=== PATIENT | female | born 1950 | race African-American/Black ===

== ENCOUNTER 2018-06-03 14:41 | Inpatient (IN) | payer MEDICARE, OTHER ==
[2018-06-03] MEDS: ONDANSETRON 4 MG INJ IV (20:19)
[2018-06-03] MEDS: morphine 4 MG/ML VIAL IV (20:19)
[2018-06-03] MEDS: SOD CHLORIDE 0.9% 1,000 ML IV (20:20)
[2018-06-03 20:34] LABS: ADD MAN DIFF? NO
[2018-06-03 20:41] LABS: BASOPHILS % 0.2 % (0.0-2.0)
[2018-06-03 20:46] LABS: EOSINOPHILS % 0.4 % (0.0-7.0); HEMATOCRIT 43.5 % (37.0-47.0); HEMOGLOBIN 14.8 g/dl (12.0-16.0); LYMPHOCYTES # 1.4 10^3/ul (0.8-2.9); LYMPHOCYTES % 24.6 % (15.0-51.0); MEAN CORPUSCULAR HEMOGLOBIN 30.4 pg (29.0-33.0); MEAN CORPUSCULAR VOLUME 89.3 fl (82.0-101.0); MONOCYTE # 0.7 10^3/ul (0.3-0.9); MONOCYTES % 11.5 % (0.0-11.0); NEUTROPHIL # 3.6 10^3/ul (1.6-7.5); NEUTROPHILS % 62.9 % (39.0-77.0); PLATELET COUNT 287 10^3/UL (140-415); RED BLOOD COUNT 4.87 10^6/ul (4.20-5.40); RED CELL DISTRIBUTION WIDTH 13.5 % (11.5-14.5)
[2018-06-03 20:46] LABS: WHITE BLOOD COUNT 5.7 10^3/ul (4.8-10.8)
[2018-06-03] MEDS: LORAZEPAM 2 MG INJ IV ×2 (20:50→23:56)
[2018-06-03 20:51] LABS: POSITIVE DIFF @See below
[2018-06-03] MEDS: LIDOCAINE 2% VISC 15 ML CUP PO (20:52)
[2018-06-03 20:58] LABS: ALANINE AMINOTRANSFERASE 22 IU/L (13-69); ALBUMIN 3.9 g/dl (3.3-4.9); ALBUMIN/GLOBULIN RATIO 1.11; ALKALINE PHOSPHATASE 94 IU/L (42-121); ANION GAP 8 (5-13); ASPARTATE AMINO TRANSFERASE 11 IU/L (15-46); BILIRUBIN,INDIRECT 0.3 mg/dl (0-1.1); BILIRUBIN,TOTAL 0.3 mg/dl (0.2-1.3); BLOOD UREA NITROGEN 12 mg/dl (7-20); CALCIUM 9.5 mg/dl (8.4-10.2); CARBON DIOXIDE 28 mmol/L (21-31); CHLORIDE 98 mmol/L (97-110); CREATININE 0.64 mg/dl (0.44-1.00); Estimated GFR > 60 mL/min (>60); GLUCOSE 279 mg/dl (70-220); LIPASE 25 U/L (23-300); POTASSIUM 4.1 mmol/L (3.5-5.1); SODIUM 134 mmol/L (135-144); TOTAL PROTEIN 7.4 g/dl (6.1-8.1)
[2018-06-03 21:32] LABS: BAND NEUTROPHILS #M 0.2 10^3/ul (0.0-0.6); BAND NEUTROPHILS % (M) 5 % (0-4); LYMPHOCYTES #M 1.6 10^3/ul (0.8-2.9); LYMPHOCYTES % (M) 29 % (15-51); MONOCYTE #M 0.2 10^3/ul (0.3-0.9); MONOCYTES % (M) 5 % (0-11); PLATELET ESTIMATE NORMAL; REACTIVE LYMPHOCYTES% (M) 1 % (0-0); SEG NEUT #M 3.4 10^3/ul (1.6-7.5); SEGMENTED NEUTROPHILS (M) % 60 % (39-77); SMUDGE%M 1 % (0-0)
[2018-06-03 21:36] LABS: PROTIME 13.3 Sec (11.9-14.9)
[2018-06-03 21:37] LABS: PARTIAL THROMBOPLASTIN TIME 24.3 Sec (23.0-35.0)
[2018-06-03] MEDS ORDERED: ONDANSETRON 4 MG INJ IV (22:00)
[2018-06-03] MEDS ORDERED: ACETAMINOPHEN 325 MG TAB PO (22:00)
[2018-06-03 22:17] LABS: ADD UMIC YES; UR ASCORBIC ACID NEGATIVE (NEGATIVE); UR BACTERIA FEW /HPF (NONE SEEN); UR BILIRUBIN (Dip) NEGATIVE (NEGATIVE); UR BLOOD (Dip) NEGATIVE (NEGATIVE); UR CLARITY SLIGHTLY CLOUDY (CLEAR); UR COLOR YELLOW (YELLOW); UR GLUCOSE (Dip) 3+ mg/dL (NEGATIVE); UR KETONES (Dip) 1+ mg/dL (NEGATIVE); UR LEUKOCYTE ESTERASE (Dip) NEGATIVE Leu/ul (NEGATIVE); UR MUCUS MANY /HPF (NONE SEEN); UR NITRITE (Dip) NEGATIVE (NEGATIVE); UR RBC 1 /HPF (0-5); UR SPECIFIC GRAVITY (Dip) 1.043 (1.003-1.030); UR SQUAMOUS EPITHELIAL CELL MODERATE /HPF (FEW); UR TOTAL PROTEIN (Dip) 1+ mg/dl (NEGATIVE); UR UROBILINOGEN (Dip) NEGATIVE (NEGATIVE); UR WBC 0 /HPF (0-5)
[2018-06-03] MEDS: NS + KCL 20 MEQ 1,000 ML IV (23:57)
[2018-06-04] MEDS ORDERED: hydrALAzine 20 MG INJ IV ×2 (00:30)
[2018-06-04] MEDS ORDERED: DEXTROSE 50% 50 ML SYRINGE IV ×2 (01:00)
[2018-06-04] MEDS ORDERED: GLUCOSE GEL 15 GRAM TUBE BUCCAL (01:00)
[2018-06-04] MEDS ORDERED: GLUCOSE GEL 15 GRAM TUBE PO ×2 (01:00)
[2018-06-04] MEDS ORDERED: GLUCAGON 1 MG INJ IM (01:00)
[2018-06-04] MEDS: INSULIN ASPART [NOVOLOG] 3 ML PEN SC ×6 (01:00→20:45)
[2018-06-04] MEDS: ACCU-CHEK XX (02:00)
[2018-06-04] MEDS: morphine 2 MG INJ IV ×4 (02:19→21:41)
[2018-06-04 05:41] LABS: ADD MAN DIFF? NO
[2018-06-04 05:49] LABS: BASOPHILS % 0.2 % (0.0-2.0); EOSINOPHILS # 0.1 10^3/ul (0.0-0.5); EOSINOPHILS % 0.8 % (0.0-7.0); HEMATOCRIT 39.4 % (37.0-47.0); HEMOGLOBIN 13.2 g/dl (12.0-16.0); LYMPHOCYTES # 1.4 10^3/ul (0.8-2.9); LYMPHOCYTES % 21.8 % (15.0-51.0); MEAN CORPUSCULAR HEMOGLOBIN 30.6 pg (29.0-33.0); MEAN CORPUSCULAR HGB CONC 33.5 g/dl (32.0-37.0); MEAN CORPUSCULAR VOLUME 91.4 fl (82.0-101.0); MEAN PLATELET VOLUME 10.3 fl (7.4-10.4); MONOCYTE # 0.7 10^3/ul (0.3-0.9); MONOCYTES % 11.9 % (0.0-11.0); NEUTROPHIL # 4.1 10^3/ul (1.6-7.5); PLATELET COUNT 327 10^3/UL (140-415); RED BLOOD COUNT 4.31 10^6/ul (4.20-5.40); RED CELL DISTRIBUTION WIDTH 13.7 % (11.5-14.5)
[2018-06-04 05:49] LABS: WHITE BLOOD COUNT 6.2 10^3/ul (4.8-10.8)
[2018-06-04 06:19] LABS: ALANINE AMINOTRANSFERASE 20 IU/L (13-69); ALBUMIN 3.5 g/dl (3.3-4.9); ALBUMIN/GLOBULIN RATIO 1.12; ALKALINE PHOSPHATASE 76 IU/L (42-121); ANION GAP 8 (5-13); ASPARTATE AMINO TRANSFERASE 10 IU/L (15-46); BILIRUBIN,INDIRECT 0.3 mg/dl (0-1.1); BILIRUBIN,TOTAL 0.3 mg/dl (0.2-1.3); BLOOD UREA NITROGEN 9 mg/dl (7-20); CALCIUM 8.4 mg/dl (8.4-10.2); CARBON DIOXIDE 26 mmol/L (21-31); CHLORIDE 107 mmol/L (97-110); CREATININE 0.55 mg/dl (0.44-1.00); Estimated GFR > 60 mL/min (>60); GLUCOSE 199 mg/dl (70-220); POTASSIUM 3.9 mmol/L (3.5-5.1); SODIUM 141 mmol/L (135-144); TOTAL PROTEIN 6.6 g/dl (6.1-8.1)
[2018-06-04 08:50] LABS: HEMOGLOBIN A1C 8.1 % (0-5.9)
[2018-06-04] MEDS: IOHEXOL 300MG/ML 150 ML BTL PO (09:31)
[2018-06-04] MEDS: ONDANSETRON 4 MG INJ IV (09:45)
[2018-06-04] MEDS: NS + KCL 20 MEQ 1,000 ML IV ×3 (09:49→20:51)
[2018-06-04] MEDS: CEPASTAT LOZENGE MT ×2 (16:22→22:52)
[2018-06-04] MEDS: LORAZEPAM 2 MG INJ IV (23:02)
[2018-06-05] MEDS: INSULIN ASPART [NOVOLOG] 3 ML PEN SC ×6 (01:00→20:24)
[2018-06-05] MEDS: morphine 2 MG INJ IV ×3 (01:45→21:20)
[2018-06-05] MEDS: ACCU-CHEK XX ×3 (02:00→21:00)
[2018-06-05] MEDS: NS + KCL 20 MEQ 1,000 ML IV ×2 (07:17→17:50)
[2018-06-05] MEDS: CEPASTAT LOZENGE MT ×3 (09:26→20:23)
[2018-06-05] MEDS: ONDANSETRON 4 MG INJ IV (13:39)
[2018-06-05] MEDS: metFORMIN 500 MG TAB PO (17:53)
[2018-06-05] MEDS: ENOXAPARIN 100 MG/ML SYG SC (17:55)
[2018-06-05] MEDS: DILTIAZEM (CD) 180 MG CAP PO (20:23)
[2018-06-05] MEDS: ATORVASTATIN 20 MG TAB PO (20:23)
[2018-06-05] MEDS: GABAPENTIN 300 MG CAP PO (20:23)
[2018-06-05] MEDS: LORAZEPAM 2 MG INJ IV (23:09)
[2018-06-06] MEDS: ACCU-CHEK XX ×5 (02:00→20:34)
[2018-06-06] MEDS: NS + KCL 20 MEQ 1,000 ML IV ×3 (02:33→22:35)
[2018-06-06] MEDS: morphine 2 MG INJ IV ×3 (02:37→22:31)
[2018-06-06] MEDS: INSULIN ASPART [NOVOLOG] 3 ML PEN SC ×4 (07:50→20:34)
[2018-06-06] MEDS: metFORMIN 500 MG TAB PO ×2 (08:54→17:43)
[2018-06-06] MEDS: LISINOPRIL 20 MG TAB PO (08:54)
[2018-06-06] MEDS: DILTIAZEM (CD) 180 MG CAP PO ×2 (08:54→20:33)
[2018-06-06] MEDS: GABAPENTIN 300 MG CAP PO ×3 (08:54→20:33)
[2018-06-06 10:15] LABS: ADD MAN DIFF? NO
[2018-06-06 10:16] LABS: BASOPHILS % 0.2 % (0.0-2.0); EOSINOPHILS # 0.1 10^3/ul (0.0-0.5); HEMATOCRIT 38.8 % (37.0-47.0); HEMOGLOBIN 12.9 g/dl (12.0-16.0); LYMPHOCYTES # 1.1 10^3/ul (0.8-2.9); LYMPHOCYTES % 22.6 % (15.0-51.0); MEAN CORPUSCULAR HEMOGLOBIN 30.3 pg (29.0-33.0); MEAN CORPUSCULAR HGB CONC 33.2 g/dl (32.0-37.0); MEAN CORPUSCULAR VOLUME 91.1 fl (82.0-101.0); MEAN PLATELET VOLUME 9.7 fl (7.4-10.4); MONOCYTE # 0.4 10^3/ul (0.3-0.9); MONOCYTES % 7.8 % (0.0-11.0); NEUTROPHIL # 3.4 10^3/ul (1.6-7.5); PLATELET COUNT 317 10^3/UL (140-415); RED BLOOD COUNT 4.26 10^6/ul (4.20-5.40); RED CELL DISTRIBUTION WIDTH 14.2 % (11.5-14.5)
[2018-06-06 10:37] LABS: ALANINE AMINOTRANSFERASE 26 IU/L (13-69); ALBUMIN 3.5 g/dl (3.3-4.9); ALBUMIN/GLOBULIN RATIO 1.34; ALKALINE PHOSPHATASE 70 IU/L (42-121); ANION GAP 8 (5-13); ASPARTATE AMINO TRANSFERASE 16 IU/L (15-46); BILIRUBIN,INDIRECT 0.2 mg/dl (0-1.1); BILIRUBIN,TOTAL 0.2 mg/dl (0.2-1.3); BLOOD UREA NITROGEN 5 mg/dl (7-20); CALCIUM 9.1 mg/dl (8.4-10.2); CARBON DIOXIDE 26 mmol/L (21-31); CHLORIDE 106 mmol/L (97-110); CREATININE 0.54 mg/dl (0.44-1.00); Estimated GFR > 60 mL/min (>60); GLUCOSE 203 mg/dl (70-220); POTASSIUM 4.1 mmol/L (3.5-5.1); SODIUM 140 mmol/L (135-144); TOTAL PROTEIN 6.1 g/dl (6.1-8.1)
[2018-06-06] MEDS: ENOXAPARIN 100 MG/ML SYG SC (17:45)
[2018-06-06] MEDS: BARIUM SULF 2% 450 ML BTL (BERRY SMOOTHIE) PO (18:30)
[2018-06-06] MEDS: ATORVASTATIN 20 MG TAB PO (20:33)
[2018-06-07] MEDS: ACCU-CHEK XX ×5 (02:00→21:35)
[2018-06-07] MEDS: PANTOPRAZOLE 40 MG INJ IV ×2 (05:12→17:39)
[2018-06-07] MEDS: INSULIN ASPART [NOVOLOG] 3 ML PEN SC ×4 (07:50→21:00)
[2018-06-07] MEDS: metFORMIN 500 MG TAB PO ×2 (07:50→17:32)
[2018-06-07 08:30] LABS: ADD MAN DIFF? NO
[2018-06-07 08:36] LABS: WHITE BLOOD COUNT 6.2 10^3/ul (4.8-10.8)
[2018-06-07 08:36] LABS: BASOPHILS % 0.2 % (0.0-2.0); EOSINOPHILS # 0.1 10^3/ul (0.0-0.5); EOSINOPHILS % 1.3 % (0.0-7.0); HEMATOCRIT 40.2 % (37.0-47.0); HEMOGLOBIN 13.3 g/dl (12.0-16.0); LYMPHOCYTES # 1.9 10^3/ul (0.8-2.9); LYMPHOCYTES % 31.1 % (15.0-51.0); MEAN CORPUSCULAR HEMOGLOBIN 30.4 pg (29.0-33.0); MEAN CORPUSCULAR HGB CONC 33.1 g/dl (32.0-37.0); MEAN CORPUSCULAR VOLUME 91.8 fl (82.0-101.0); MEAN PLATELET VOLUME 9.8 fl (7.4-10.4); MONOCYTE # 0.5 10^3/ul (0.3-0.9); MONOCYTES % 8.4 % (0.0-11.0); NEUTROPHIL # 3.6 10^3/ul (1.6-7.5); NEUTROPHILS % 58.5 % (39.0-77.0); PLATELET COUNT 362 10^3/UL (140-415); RED BLOOD COUNT 4.38 10^6/ul (4.20-5.40); RED CELL DISTRIBUTION WIDTH 14.1 % (11.5-14.5)
[2018-06-07] MEDS: NS + KCL 20 MEQ 1,000 ML IV ×2 (08:54→19:37)
[2018-06-07] MEDS: DILTIAZEM (CD) 180 MG CAP PO ×2 (08:55→21:34)
[2018-06-07] MEDS: GABAPENTIN 300 MG CAP PO ×3 (08:55→21:34)
[2018-06-07] MEDS: LISINOPRIL 20 MG TAB PO (08:55)
[2018-06-07 09:07] LABS: ALANINE AMINOTRANSFERASE 22 IU/L (13-69); ALBUMIN 3.8 g/dl (3.3-4.9); ALBUMIN/GLOBULIN RATIO 1.46; ALKALINE PHOSPHATASE 73 IU/L (42-121); AMYLASE 39 U/L (11-123); ANION GAP 10 (5-13); ASPARTATE AMINO TRANSFERASE 16 IU/L (15-46); BILIRUBIN,INDIRECT 0.2 mg/dl (0-1.1); BILIRUBIN,TOTAL 0.2 mg/dl (0.2-1.3); BLOOD UREA NITROGEN 4 mg/dl (7-20); CALCIUM 9.4 mg/dl (8.4-10.2); CARBON DIOXIDE 26 mmol/L (21-31); CHLORIDE 105 mmol/L (97-110); CREATININE 0.65 mg/dl (0.44-1.00); Estimated GFR > 60 mL/min (>60); GLUCOSE 105 mg/dl (70-220); LIPASE 28 U/L (23-300); POTASSIUM 4.4 mmol/L (3.5-5.1); SODIUM 141 mmol/L (135-144); TOTAL PROTEIN 6.4 g/dl (6.1-8.1)
[2018-06-07 09:38] LABS: ERYTHROCYTE SEDIMENTATION RATE 41 mm/Hr (0-30)
[2018-06-07] MEDS: IOHEXOL 14.3 MG(I)/ML (ADULT) BTL PO (10:21)
[2018-06-07] MEDS: METOCLOPRAMIDE 10 MG TAB PO ×3 (13:50→23:17)
[2018-06-07] MEDS: ENOXAPARIN 100 MG/ML SYG SC (17:34)
[2018-06-07] MEDS: ATORVASTATIN 20 MG TAB PO (21:33)
[2018-06-07] MEDS: morphine 2 MG INJ IV (23:17)
[2018-06-08] MEDS: ACCU-CHEK XX ×5 (02:00→20:46)
[2018-06-08 05:15] LABS: ADD MAN DIFF? NO
[2018-06-08] MEDS: PANTOPRAZOLE 40 MG INJ IV ×2 (05:16→17:52)
[2018-06-08] MEDS: METOCLOPRAMIDE 10 MG TAB PO ×4 (05:16→23:47)
[2018-06-08 05:20] LABS: BASOPHILS % 0.2 % (0.0-2.0); EOSINOPHILS # 0.1 10^3/ul (0.0-0.5); EOSINOPHILS % 1.1 % (0.0-7.0); HEMATOCRIT 38.5 % (37.0-47.0); LYMPHOCYTES % 31.1 % (15.0-51.0); MEAN CORPUSCULAR HEMOGLOBIN 30.6 pg (29.0-33.0); MEAN CORPUSCULAR HGB CONC 33.8 g/dl (32.0-37.0); MEAN CORPUSCULAR VOLUME 90.6 fl (82.0-101.0); MEAN PLATELET VOLUME 9.9 fl (7.4-10.4); MONOCYTE # 0.6 10^3/ul (0.3-0.9); MONOCYTES % 9.1 % (0.0-11.0); NEUTROPHIL # 3.7 10^3/ul (1.6-7.5); NEUTROPHILS % 58.2 % (39.0-77.0); PLATELET COUNT 369 10^3/UL (140-415); RED BLOOD COUNT 4.25 10^6/ul (4.20-5.40); RED CELL DISTRIBUTION WIDTH 13.9 % (11.5-14.5)
[2018-06-08 05:20] LABS: WHITE BLOOD COUNT 6.3 10^3/ul (4.8-10.8)
[2018-06-08 06:03] LABS: ANION GAP 9 (5-13); BLOOD UREA NITROGEN 5 mg/dl (7-20); CALCIUM 9.3 mg/dl (8.4-10.2); CARBON DIOXIDE 24 mmol/L (21-31); CHLORIDE 107 mmol/L (97-110); CREATININE 0.56 mg/dl (0.44-1.00); Estimated GFR > 60 mL/min (>60); GLUCOSE 121 mg/dl (70-220); MAGNESIUM 1.9 mg/dl (1.7-2.5); POTASSIUM 4.2 mmol/L (3.5-5.1); SODIUM 140 mmol/L (135-144)
[2018-06-08] MEDS: metFORMIN 500 MG TAB PO ×2 (08:40→17:51)
[2018-06-08] MEDS: INSULIN ASPART [NOVOLOG] 3 ML PEN SC ×4 (08:40→20:44)
[2018-06-08] MEDS: GABAPENTIN 300 MG CAP PO ×4 (08:40→20:46)
[2018-06-08] MEDS: LISINOPRIL 20 MG TAB PO (08:41)
[2018-06-08] MEDS: DILTIAZEM (CD) 180 MG CAP PO ×2 (08:42→20:45)
[2018-06-08] MEDS: NS + KCL 20 MEQ 1,000 ML IV (13:31)
[2018-06-08] MEDS: ATORVASTATIN 20 MG TAB PO (20:46)
[2018-06-08] MEDS: morphine 2 MG INJ IV (22:17)
[2018-06-09] MEDS: ACCU-CHEK XX ×3 (01:36→11:10)
[2018-06-09] MEDS: PANTOPRAZOLE (EC) 40 MG TAB PO (06:11)
[2018-06-09] MEDS: METOCLOPRAMIDE 10 MG TAB PO ×2 (06:11→12:00)
[2018-06-09] MEDS: INSULIN ASPART [NOVOLOG] 3 ML PEN SC ×2 (07:50→11:40)
[2018-06-09] MEDS: LISINOPRIL 20 MG TAB PO (08:20)
[2018-06-09] MEDS: DILTIAZEM (CD) 180 MG CAP PO (08:21)
[2018-06-09] MEDS: metFORMIN 500 MG TAB PO (08:22)
[2018-06-09] MEDS: GABAPENTIN 300 MG CAP PO ×2 (08:22→12:46)
[2018-06-09] MEDS: CLOPIDOGREL 75 MG TAB PO (08:24)
[2018-06-09] MEDS: NS + KCL 20 MEQ 1,000 ML IV (09:51)
[2018-06-09] MEDS: FUROSEMIDE 20 MG INJ IV (15:24)
== END 2018-06-09 15:30 | disposition home or self-care (01) | DRG 389 ==
LOC: E/R 14:41 → MS1 21:32
DX: K56.600 Partial intestinal obstruction, unspecified as to cause (principal); I69.959 Hemiplegia and hemiparesis following unspecified cerebrovascular disease affecting unspecified side; I10 Essential (primary) hypertension; E78.5 Hyperlipidemia, unspecified; E11.40 Type 2 diabetes mellitus with diabetic neuropathy, unspecified; E66.9 Obesity, unspecified; Z68.32 Body mass index [BMI] 32.0-32.9, adult; Z87.891 Personal history of nicotine dependence; F32.9 Major depressive disorder, single episode, unspecified
CPT/HCPCS: 36415; 74019; 74176; 80048; 80053; 81001; 82150; 82962; 83036; 83690; 83735; 85025; 85610; 85651; 85730; 87081; 96374; 96375; 99285-25